=== PATIENT | male | born 1975 | race Caucasian/White ===

== ENCOUNTER 2016-12-19 21:00 | Emergency (ER) | payer MEDICAID ==
[2016-12-19 21:28] VITALS: BP 143/88
--- NOTE | 2016-12-19 21:40 | EDM.PDOC ---
ED HPI GENERAL MEDICAL PROBLEM - General Chief Complaint: Lower Extremity Injury/Pain Stated Complaint: RIGHT LEG INJURY Time Seen by Provider: 12/19/16 21:30 Source of Information: Reports: Patient History Limitations: Reports: No Limitations - History of Present Illness INITIAL COMMENTS - FREE TEXT/NARRATIVE: PT STATES HE ACCIDENTLY STEPPED IN HOLE AND TWISTED RIGHT ANKLE. DENIES FALL OR ANY OTHER INJURY Onset: Today Onset Date: 12/19/16 Onset Time: 18:00 Location: Reports: Lower Extremity, Right Quality: Reports: Throbbing Improves with: Reports: None Worsens with: Reports: Movement Associated Symptoms: Reports: No Other Symptoms right leg /ankle Pain Score (Numeric/FACES): 3 - Related Data Allergies Allergy/AdvReac Type Severity Reaction Status Date / Time No Known Drug Allergies Allergy Other Verified 04/11/14 11:40 Home Meds: Home Meds . 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 Constitutional: Reports: No Symptoms Eyes: Reports: No Symptoms Ears: Reports: No Symptoms Nose: Reports: No Symptoms Mouth/Throat: Reports: No Symptoms Respiratory: Reports: No Symptoms Cardiovascular: Reports: No Symptoms GI/Abdominal: Reports: No Symptoms Genitourinary: Reports: No Symptoms Musculoskeletal: Reports: Leg Pain, Joint Pain, Joint Swelling Skin: Reports: No Symptoms Neurological: Reports: No Symptoms Psychiatric: Reports: No Symptoms Trauma Exam - Physical Exam Exam: See Below Exam Limited By: No Limitations General Appearance: Reports: Alert, WD/WN, No Apparent Distress Head: Reports: Atraumatic, Normocephalic Throat/Mouth: Reports: Normal Inspection, Normal Oropharynx, No Airway Compromise Respiratory Exam: Reports: No Respiratory Distress Back: Reports: Full Range of Motion, Normal Inspection, Non-Tender Extremities: Pain with Movement (RIGHT ANKLE), Tenderness, Other (RIGHT LAT MALLEOLUS EDEMA / NO DEFORMITY) Neurologic: Reports: Normal Mood/Affect, Oriented x 3 Skin: Reports: Normal Color, Warm/Dry ED TRAUMA EXTREMITY PROCEDURES - Splinting Lower Extremity Pre-procedure NV status: normal Post-procedure NV status: normal Splint material: fiberglass Splint design: sugar tong, stirrup Applied & form fitted by: provider Provider post-splint application NV check: NV status normal, good position Complications: No Course - Vital Signs Last Recorded V/S: Last Vital Signs Temp 97.8 F 12/19/16 21:12 Pulse 71 12/19/16 21:12 Resp 18 12/19/16 21:12 BP 143/88 H 12/19/16 21:12 Pulse Ox 96 12/19/16 21:12 - Orders/Labs/Meds Orders: Active Orders 24 hr Category Date Time Status Ankle Min 3V Rt [CR] Stat Exams 12/19/16 21:30 Ordered Ice Bag [Ice Therapy] [OM.PC] Routine Oth 12/19/16 21:30 Ordered - Radiology Interpretation Free Text/Narrative:: right fibula fracture - Re-Assessments/Exams Free Text/Narrative Re-Assessment/Exam: 12/19/16 21:59 PT AFEBRILE, NONTOXIC APPEARING, TOLERATED SPLINTING WELL. CRUTCHES GIVEN Departure - Departure Time of Disposition: 22:03 Disposition: Home, Self-Care 01 Condition: good Clinical Impression: Fracture of fibula - Discharge Information Instructions: Cast or Splint Care, [id number], Fibular Ankle Fracture Treated With or Without Immobilization, Adult, Crutch Use, [id number] Forms: ED Department Discharge Additional Instructions: FOLLOW UP WITH DR BURRELL, ORTHOPEDICS. CALL TOMORROW FOR APPOINTMENT - My Orders Last 24 Hours: My Active Orders 12/19/16 21:30 Ankle Min 3V Rt [CR] Stat Ice Bag [Ice Therapy] [OM.PC] Routine - Assessment/Plan Last 24 Hours: My Active Orders 12/19/16 21:30 Ankle Min 3V Rt [CR] Stat Ice Bag [Ice Therapy] [OM.PC] Routine Assessment:: RIGHT FIBULA FRACTURE Plan: FOLLOW UP WITH ORTHO DR BURRELL
[2016-12-19] MEDS ORDERED: Ibuprofen 600 MG Tab PO ONE (22:13)
[2016-12-19] MEDS ORDERED: Ibuprofen 200 MG Tab ONE (22:13)
== END 2016-12-19 22:15 | disposition home or self-care (01) ==
LOC: KA.ED 21:00
DX: S82.831A Other fracture of upper and lower end of right fibula, initial encounter for closed fracture (principal); F17.200 Nicotine dependence, unspecified, uncomplicated; X50.1XXA Overexertion from prolonged static or awkward postures, initial encounter
CPT/HCPCS: 29515; 73610; 99283; A9270

== ENCOUNTER 2021-06-04 13:27 | Emergency (ER) | payer MEDICAID ==
--- NOTE | 2021-06-04 14:12 | EDM.PDOC ---
ED HPI GENERAL MEDICAL PROBLEM - General Stated Complaint: SOB/FATIGUE Time Seen by Provider: 06/04/21 13:39 Source of Information: Reports: Patient History Limitations: Reports: No Limitations - History of Present Illness INITIAL COMMENTS - FREE TEXT/NARRATIVE: Patient presents with fatigue, weakness/decreased energy, dyspnea, body aches and brief coughing spells. These symptoms have been going on for several months. He says some of this started 12 months ago and have been steadily and slowly worsening since then. The coughing spells last only a few seconds but sometimes make him "black out". They used to be just once a week but now 1- 2/day. Yesterday he spent the day hunting and was very tired and weak. He wasn't able to do the walking he normally does. He noticed this last hunting season too. This morning he slept soundly until noon and only awakened because people were knocking loudly on his door and calling him. He went to bed last night at 2200 so slept about 14 hours. This has also happened a few times previously and seems to be worsening. He suspects he has sleep apnea and saw his PCP for it. He is scheduled to be evaluated on August 20 for a sleep study. He got Covid 14 months ago and definitely wonders if this is all related to that. He says he didn't get very sick with covid. He got the vaccines about 6 months ago too. He has had bipolar depression most of his life. Nothing feels worse today than the last few days but his brother told him he needed to come in when he got him woke up today at noon. - Related Data Allergies Allergy/AdvReac Type Severity Reaction Status Date / Time No Known Drug Allergies Allergy Other Verified 06/04/21 14:25 Home Meds: Home Meds . [No Known Home Meds] 04/11/14 [History] Past Medical History Cardiovascular History: Reports: Arrhythmia, Hypertension, Other (See Below) Other Cardiovascular History: Previous history of hypertension including medical therapy. Unknown type of cardiac arrhythmia. Musculoskeletal History: Reports: Arthritis, Fracture, Osteoarthritis, Other (See Below) Other Musculoskeletal History: Right distal fibular fracture/ankle fracture on 12/19/2016 requiring surgeries as below. Left clavicular fracture at age 10. Psychiatric History: Reports: Addiction, Anxiety, Bipolar, Depression, Panic Attack, Psych Hospitalization(s), Suicidal Ideation, Other (See Below). Denies: Suicide Attempt Other Psychiatric History: Illicit drug use as below. Note history of single ideation on 04/11/2014 with subsequent hospitalization in [place]. Endocrine/Metabolic History: Reports: Obesity/BMI 30+ - Infectious Disease History Infectious Disease History: Reports: Novel Coronavirus (March 2020.) - Past Surgical History Musculoskeletal Surgical History: Reports: ORIF, Other (See Below) Other Musculoskeletal Surgeries/Procedures:: ORIF of right ankle/distal fibular fracture in November 2016 with subsequent unsuccessful incomplete hardware removal complicated by additional fracture at that time by patient history. 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 Denies: Fever HEENT: Denies: Ear Pain, Throat Pain, Vision Change Respiratory: Reports: Shortness of Breath, Cough, Sputum Cardiovascular: Reports: Lightheadedness, Syncope. Denies: Chest Pain Endocrine: Reports: Fatigue GI/Abdominal: Reports: Nausea. Denies: Abdominal Pain, Diarrhea, Vomiting : Denies: Dysuria, Flank Pain Musculoskeletal: Reports: Other (just general body aches) Skin: Denies: Cyanosis, Jaundice, Mottled, Pallor, Diaphoresis Neurological: Denies: Confusion, Dizziness, Headache, Seizure, Syncope, Trouble Speaking Psychiatric: Denies: Agitation, Anxiety, Confusion ED EXAM, GENERAL - Physical Exam Exam: See Below Exam Limited By: No Limitations General Appearance: Alert, WD/WN, No Apparent Distress Eye Exam: Bilateral Eye: EOMI, Normal Inspection, PERRL Ears: Normal External Exam, Hearing Grossly Normal Nose: Normal Inspection, No Blood Throat/Mouth: Normal Inspection, Normal Lips, Normal Voice, No Airway Compromise Head: Atraumatic, Normocephalic Neck: Normal Inspection, Full Range of Motion Respiratory/Chest: No Respiratory Distress, Lungs Clear, Normal Breath Sounds Cardiovascular: Regular Rate, Rhythm, No Murmur GI/Abdominal: Normal Bowel Sounds, Soft, Non-Tender, No Organomegaly, No Distention, No Abnormal Bruit Back Exam: Normal Inspection, Full Range of Motion. No: CVA Tenderness (L), CVA Tenderness (R) Extremities: Normal Inspection, Normal Range of Motion Neurological: Alert, Oriented, Normal Cognition, No Motor/Sensory Deficits Psychiatric: Normal Affect, Depressed Mood (discouraged with how long this has been going on and not knowing what is causing it) Skin Exam: Warm, Dry, Intact, Normal Color, No Rash Course - Vital Signs Last Recorded V/S: Last Vital Signs Temp 98.1 F 06/04/21 13:45 Pulse 72 06/04/21 13:45 Resp 16 06/04/21 13:45 BP 145/84 H 06/04/21 13:45 Pulse Ox 96 06/04/21 13:45 - Orders/Labs/Meds Orders: Active Orders 24 hr Category Date Time Status EKG Documentation Completion [RC] ASDIRECTED Care 06/04/21 15:14 Ordered EKG 12 Lead [EK] Stat Ther 06/04/21 15:14 Ordered Labs: Laboratory Tests 06/04/21 06/04/21 06/04/21 Range/Units 13:59 14:00 14:15 WBC 6.71 (5.00-10.00) 10^3/uL RBC 5.19 (4.50-6.00) 10^6/uL Hgb 15.5 (13.0-17.0) g/dL Hct 47.0 (40.0-52.0) % MCV 90.6 (82.0-92.0) fL MCH 29.9 (27.0-31.0) pg MCHC 33.0 (32.0-36.0) g/dL RDW 13.0 (11.5-14.5) % Plt Count 153 (150-400) 10^3/uL MPV 10.7 H (7.4-10.4) fL Immature Gran % (Auto) 0.3 (0.0-5.0) % Neut % (Auto) 51.9 (50.0-70.0) % Lymph % (Auto) 35.9 (20.0-40.0) % Cors[place] % (Auto) 7.0 (2.0-8.0) % Eos % (Auto) 4.3 H (1.0-3.0) % Baso % (Auto) 0.6 (0.0-1.0) % Neut # (Auto) 3.48 (2.50-7.00) 10^3/uL Lymph # (Auto) 2.41 (1.00-4.00) 10^3/uL Corson # (Auto) 0.47 (0.10-0.80) 10^3/uL Eos # (Auto) 0.29 (0.10-0.30) 10^3/uL Baso # (Auto) 0.04 (0.00-0.10) 10^3/uL Immature Gran # (Auto) 0.02 (0.00-0.50) 10^3/uL D-Dimer, Quantitative (<400) ng/mL Sodium 143 (136-145) mmol/L Potassium 3.9 (3.5-5.1) mmol/L Chloride 105 (98-107) mmol/L Carbon Dioxide 27.9 (21.0-32.0) mmol/L Anion Gap 14.0 (5-15) mmol/L BUN 10 (7-18) mg/dL Creatinine 0.92 (0.51-1.17) mg/dL Est Cr Clr Drug Dosing TNP Estimated GFR (MDRD) > 60 mL/min Glucose 142 H (70-140) mg/dL Calcium 8.4 L (8.7-10.3) mg/dL Total Bilirubin 0.6 (0.2-1.0) mg/dL AST 33 (15-37) U/L ALT 54 (14-63) U/L Alkaline Phosphatase 56 (46-116) U/L Troponin I High Sens 25.600 (0-76.000) pg/mL Total Protein 7.3 (6.4-8.2) g/dL Albumin 3.50 (3.40-5.00) g/dL TSH, Ultra Sensitive 1.548 (0.340-4.820) uIU/mL SARS CoV-2 RNA Rapid BEATA Negative (NEGATIVE) 06/04/21 Range/Units 14:15 WBC (5.00-10.00) 10^3/uL RBC (4.50-6.00) 10^6/uL Hgb (13.0-17.0) g/dL Hct (40.0-52.0) % MCV (82.0-92.0) fL MCH (27.0-31.0) pg MCHC (32.0-36.0) g/dL RDW (11.5-14.5) % Plt Count (150-400) 10^3/uL MPV (7.4-10.4) fL Immature Gran % (Auto) (0.0-5.0) % Neut % (Auto) (50.0-70.0) % Lymph % (Auto) (20.0-40.0) % Cors[place] % (Auto) (2.0-8.0) % Eos % (Auto) (1.0-3.0) % Baso % (Auto) (0.0-1.0) % Neut # (Auto) (2.50-7.00) 10^3/uL Lymph # (Auto) (1.00-4.00) 10^3/uL Cors[place] # (Auto) (0.10-0.80) 10^3/uL Eos # (Auto) (0.10-0.30) 10^3/uL Baso # (Auto) (0.00-0.10) 10^3/uL Immature Gran # (Auto) (0.00-0.50) 10^3/uL D-Dimer, Quantitative < 100 (<400) ng/mL Sodium (136-145) mmol/L Potassium (3.5-5.1) mmol/L Chloride (98-107) mmol/L Carbon Dioxide (21.0-32.0) mmol/L Anion Gap (5-15) mmol/L BUN (7-18) mg/dL Creatinine (0.51-1.17) mg/dL Est Cr Clr Drug Dosing Estimated GFR (MDRD) mL/min Glucose (70-140) mg/dL Calcium (8.7-10.3) mg/dL Total Bilirubin (0.2-1.0) mg/dL AST (15-37) U/L ALT (14-63) U/L Alkaline Phosphatase (46-116) U/L Troponin I High Sens (0-76.000) pg/mL Total Protein (6.4-8.2) g/dL Albumin (3.40-5.00) g/dL TSH, Ultra Sensitive (0.340-4.820) uIU/mL SARS CoV-2 RNA Rapid BEATA (NEGATIVE) - Re-Assessments/Exams Free Text/Narrative Re-Assessment/Exam: 06/04/21 16:06 EKG shows q-waves in V2, V3. Troponin is negative. Covid is negative. TSH is normal. CBC is normal. Discussed findings and recommendations; he should see his PCP and likely cardiac consult/echo. Further evaluation with fasting labs to ruleout DM. Getting the sleep study before 3 more months would be helpful. Stable at discharge. Departure - Departure Time of Disposition: 15:59 Disposition: Home, Self-Care 01 Condition: Good Clinical Impression: General weakness Fatigue Qualifiers: Encounter type: initial encounter - Discharge Information Referrals: Carla Barnhart MD [Physician] - Additional Instructions: Continue to drink 8 cups of water daily. Follow up with your PCP in a few days for further evaluation of the fatigue and weakness, as well as your heart. With the possibility of a heart attack in the past, you may need to have an ultrasound of your heart to assess it better. Also see if the sleep study could possibly be sooner than July. Fasting labs to rule out diabetes. If worsening, recheck in clinic or ER as needed. Sepsis Event Note (ED) - Focused Exam Vital Signs: Vital Signs Temp Pulse Resp BP Pulse Ox 06/04/21 13:45 98.1 F 72 16 145/84 H 96 - My Orders Last 24 Hours: My Active Orders 06/04/21 15:14 EKG Documentation Completion [RC] ASDIRECTED EKG 12 Lead [EK] Stat - Assessment/Plan Last 24 Hours: My Active Orders 06/04/21 15:14 EKG Documentation Completion [RC] ASDIRECTED EKG 12 Lead [EK] Stat
[2021-06-04 14:24] LABS: CHLORIDE,CL 105 mmol/L (98-107); SODIUM,NA 143 mmol/L (136-145)
[2021-06-04 14:25] VITALS: BP 145/84; PULSE 72
--- NOTE | 2021-06-04 14:30 | CR ---
[id number] RAD/RAD Chest PA or AP 1V EXAM: FRONTAL CHEST INDICATION: DYSPNEA. COMPARISON: None. DISCUSSION: The heart and lungs are normal in appearance. IMPRESSION: 1. Negative exam. Chinedu Thomas MD 06/04/21 [id number] Thank you for allowing us to participate in the care of your patient.
== END 2021-06-04 16:20 | disposition home or self-care (01) ==
LOC: KA.ED 13:27
DX: R53.83 Other fatigue (principal); R53.1 Weakness; I10 Essential (primary) hypertension; E66.9 Obesity, unspecified; Z68.41 Body mass index [BMI] 40.0-44.9, adult; Z20.822 Contact with and (suspected) exposure to COVID-19
CPT/HCPCS: 36415; 71045; 80053; 84443; 84484; 85025; 85379; 93005; 93010; 99284; 99285-25; U0002